=== PATIENT | male | born 1975 ===

== ENCOUNTER 2022-03-19 14:27 | Outpatient (CLI) | payer BC ==
[2022-03-19] MEDS ORDERED: Iopamidol-370 76% 500 ML 1 ML ONE (16:01)
== END 2022-03-19 14:28 | disposition home or self-care (01) ==
LOC: BICCT 14:27
PROVIDERS: ATTEND Internal Medicine Gastroenterology
DX: R10.9 Unspecified abdominal pain (principal); R63.4 Abnormal weight loss; N28.1 Cyst of kidney, acquired; R16.1 Splenomegaly, not elsewhere classified
CPT/HCPCS: 74177; Q9967